=== PATIENT | male | born 1975 | race Caucasian/White ===

== ENCOUNTER 2017-03-25 23:42 | Emergency (ER) | payer SELFPAY ==
[~2017-03-25] VITALS: Ht 188 cm; Wt 113.9 kg
[2017-03-26] MEDS ORDERED: TRAMADOL HCL50 MG PO (01:29)
[2017-03-26] MEDS ORDERED: AMOXICILLIN875 MG PO (01:29)
[2017-03-26 01:42] VITALS: BP 141/110
== END 2017-03-26 01:47 | disposition home or self-care (01) ==
LOC: EME 23:42 → RME 23:42
DX: K08.89 Other specified disorders of teeth and supporting structures (principal); I10 Essential (primary) hypertension; F17.200 Nicotine dependence, unspecified, uncomplicated
CPT/HCPCS: 99281; 99283

== ENCOUNTER 2017-03-26 21:00 | Emergency (ER) | payer SELFPAY ==
[~2017-03-26] VITALS: Ht 188 cm; Wt 112.0 kg
[~2017-03-26 21:00] MED LIST: AMOXICILLIN875 MG PO; TRAMADOL HCL50 MG PO
[2017-03-26 23:24] VITALS: BP 128/101
== END 2017-03-26 23:27 | disposition home or self-care (01) ==
LOC: EME 21:00
PROC: 3E0T3BZ Introduction of Anesthetic Agent into Peripheral Nerves and Plexi, Percutaneous Approach (ICD-10-PCS; principal; 2017-03-26)
DX: K04.7 Periapical abscess without sinus (principal)
CPT/HCPCS: 99281; 99284